=== PATIENT | male | born 1955 | race Caucasian/White ===

== ENCOUNTER 2020-12-24 16:00 | Inpatient (IN) ==
[2020-12-24] MEDS ORDERED: IOPAMIDOL 100 ML BOTTLE IV ONE (16:01)
[2020-12-24] MEDS ORDERED: 0.9 % SODIUM CHLORIDE 2,000 ML IV ONE (16:33)
[2020-12-24] MEDS ORDERED: ACETAMINOPHEN 325 MG TABLET PO ONE (16:38)
[2020-12-24] MEDS ORDERED: LEVOFLOXACIN 750 MG/150 ML BAG IV ONE (16:40)
--- NOTE | 2020-12-24 17:29 | XRay Report ---
HISTORY: Fever FINDINGS: Lungs are clear and well-expanded, without evidence of pneumonia. There is no adenopathy or pleural effusion. The heart size is borderline enlarged but magnified by portable technique. The heart is larger today than it was in 2018. Patient has a right shoulder prosthesis which is also new. IMPRESSION: Borderline cardiomegaly without congestive heart failure and no evidence of pneumonia Interpreted and Authenticated by: Vasiliy Burgess 12/24/20
[2020-12-24 17:45] LABS: Basophils # (Auto) 0.08 K/mcL (0.00-0.30); Basophils % (Auto) 0.3 % (0.0-2.0); Eosinophils # (Auto) 0.01 K/mcL (0.00-0.70); Eosinophils % (Auto) 0 % (0.0-7.0); Hematocrit 40.3 % (40.1-51.0); Hemoglobin 13.3 g/dL (13.7-17.5); Lymphocytes # (Auto) 0.87 K/mcL (1.50-4.80); Lymphocytes % (Auto) 3.8 % (15.5-49.0); Mean Cell Volume 89.8 fL (80.0-100.0); Mean Platelet Volume 11.1 fL (7.4-10.4); Monocytes % (Auto) 9.2 % (1.0-12.0); Neutrophils % (Auto) 86.7 % (38.0-78.0); Platelet Count 173 K/mcL (140-440); RBC 4.49 M/mcL (4.63-6.08); Red Cell Distribution Width 13.1 % (11.5-14.5); WBC 22.9 K/mcL (4.5-11.0)
[2020-12-24 17:54] LABS: Appearance,Urine HAZY (Clear); Bacteria,Urine FEW /hpf (0); Bilirubin,Urine Negative (Negative); Color,Urine YELLOW; Culture Indicated,Urine yes; Glucose,Urine (UA) >=500 mg/dL (Negative); Ketones,Urine 5 mg/dL (Negative); Leukocyte Esterase,Urine 75 /ug (Negative); Mucus,Urine FEW /hpf; Nitrate,Urine POS (Negative); Protein,Urine 30 mg/dL (Negative); Specific Gravity,Urine 1.018 (1.000-1.035); Urine Blood 0.03 mg/dL (Negative); Urine RBC 1 /hpf (0-3); Urine Squamous Epithelial Cell 0 /hpf (0-4); Urine WBC 32 /hpf (0-4); Urobilinogen,Urine Negative
[2020-12-24 18:01] LABS: ALT/SGPT 13 U/L (<40); AST/SGOT 16 U/L (<40); Albumin/Globulin Ratio 1.1 (1.0-2.3); Alkaline Phosphatase 87 U/L (39-117); Bilirubin,Total 1.6 mg/dL (0.1-1.0); Blood Urea Nitrogen 17 mg/dL (8-23); Calcium 9.4 mg/dL (8.6-10.4); Carbon Dioxide 22 mmol/L (22-30); Chloride 93 mmol/L (96-108); Globulin 3.6 gm/dL (2.2-3.7); Glomerular Filtration Rate 56; Glucose 265 mg/dL (70-105)
--- NOTE | 2020-12-24 18:06 | Emergency Department Note ---
Male Urogenital HPI General Chief complaint: Urogenital-Male Stated complaint: Prostitis Time Seen by Provider: 12/24/20 16:30 Source: patient Mode of arrival: ambulatory Limitations: no limitations History of Present Illness HPI Narrative: Narrative: Patient presents to the ED with approximately 1 day of fever, dysuria and developing rectal pain. He has a history of prostatitis which he says feels similar. Admits some associated nausea, no vomiting, no abdominal pain, no flank pain. Denies any URI symptoms or cough. No other complaints. Does have a history of diabetes. Related Data Home Medications Medication Instructions Recorded Confirmed allopurinol 100 mg tablet 100 mg PO QDAY 03/11/19 09/21/20 diltiazem HCl 180 mg 180 mg PO QDAY 03/11/19 09/21/20 capsule,extended release 24 hr, controlled glipizide 10 mg tablet 10 mg PO QDAY 03/11/19 09/21/20 hydrochlorothiazide 12.5 mg capsule 12.5 mg PO QDAY 03/11/19 09/21/20 hydrocodone 7.5 mg-acetaminophen 1 tab PO QHS PRN 03/11/19 09/21/20 325 mg tablet lisinopril 20 mg tablet 20 mg PO QDAY 03/11/19 09/21/20 metformin 500 mg tablet 500 mg PO BID 03/11/19 09/21/20 rosuvastatin 10 mg tablet 10 mg PO QDAY 03/11/19 09/21/20 sitagliptin 100 mg tablet 100 mg PO QDAY 03/11/19 09/21/20 tramadol 50 mg tablet 50 mg PO BID 03/11/19 09/21/20 Allergies Allergy/AdvReac Type Severity Reaction Status Date / Time penicillin G Allergy Severe ITCHING,SHORTNESS Verified 12/24/20 16:13 OF BREATH, SWELLING, RASH Cephalosporins Allergy Intermediate Rash Verified 12/24/20 16:13 Sulfa (Sulfonamide Allergy Intermediate SOB, Verified 12/24/20 16:13 Antibiotics) SWELLING [SULFA(SULFONAMIDE ALL OVER ANTIBIOTICS)] BODY, ITCHING Review of Systems ROS ROS Narrative: Narrative: At least 10 systems reviewed and otherwise acutely negative except as in the HPI PFSH Narrative Patient History Narrative: Narrative: Medical/Surgical/Family History All Active Problems (Updated 12/25/20 @ 03:33 by Sachin Mary DO) Sepsis (Acute) Acute prostatitis (Acute) History of right shoulder replacement (Acute) Shoulder pain (Acute) Morbid obesity (Chronic) Palsy, Carias's (Acute) Diabetes mellitus (Chronic) Hyperlipidemia (Chronic) Hypertension (Chronic) Medical History Diabetes mellitus History of atrial fibrillation S/P cardioversion Hyperlipidemia Hypertension Morbid obesity Prostatitis Shoulder pain Surgical History History of right shoulder replacement Social History Smoking Status: Former smoker Alcohol Intake Frequency: does not drink Substance Use: does not use Exam Narrative Narrative: Narrative: Constitutional: normally developed, no acute distress . Head: Normocephalic, atraumatic, Eyes: No Icterus, ENT: Moist mucus membranes, Neck: Supple, Cardiac: Normal heart sounds, palpable radial pulses, no peripheral edema Pulmonary: Normal respiratory effort. Breath sounds clear, no wheeze, rhonchi, rales, Gastrointestinal: Abdomen soft, non-distended, non-tender, no CVA tenderness Genitourinary: Grossly normal appearing penis and scrotum, testes nonswollen no erythema nontender, perineal region is normal appearing shows no rash or induration or erythema, nontender Musculoskeletal: No gross deformities, well perfused Skin: warm, dry Neuro: Alert and oriented. General Limitations: no limitations Course Vital Signs Vital signs: Vital Signs Temperature 38.8 C H 12/24/20 16:11 Pulse Rate 102 H 12/24/20 16:11 Respiratory Rate 20 12/24/20 16:11 Blood Pressure 129/72 12/24/20 16:11 Pulse Oximetry (%) 95 12/24/20 16:11 Temperature 37.7 C H 12/24/20 22:52 Pulse Rate 77 12/24/20 22:52 Respiratory Rate 20 12/24/20 22:52 Blood Pressure 107/57 12/24/20 22:52 Pulse Oximetry (%) 94 12/24/20 22:52 MDM MDM Narrative Medical decision making narrative: Narrative: Patient presents with infectious symptoms including dysuria rectal pain, differential includes UTI/pyelonephritis, prostatitis, intra-abdominal infection , such as colitis/diverticulitis, work-up was initiated by the previous physician including 2 L bolus,Levaquin and Tylenol. He was initially mildly tachycardic and febrile concerning for sepsis, however on exam he is very nontoxic appearing, repeat vitals after initial interventions are stable/normal tachycardia resolved blood pressure stable CBC does show leukocytosis of 22, electrolytes show a hyponatremia hypochloremia Creatinine 1.3 baseline around 1.2, he is also hyperglycemic to 265 with normal anion gap normal bicarb. Has received IV fluids. Lactic acid normal 1.5 Urinalysis infectious positive nitrites, leukocyte esterase WBCs bacteria CT shows markedly enlarged prostate with stranding of the fat posterior to the prostate, no abscess, causing some compression on the ureters. Reevaluation vitals are stable his tachycardia is resolved fever resolved is feeling better, presentation consistent with sepsis likely due to UTI/prostatitis. He has already received Levaquin. I have spoken with the hospitalist who accepts admission at this time Lab Data Result diagrams: 12/24/20 16:59 12/24/20 16:59 Labs: Lab Results 12/24/20 12/24/20 12/24/20 Range/Units 16:20 16:59 16:59 WBC 22.9 H (4.5-11.0) K/mcL RBC 4.49 L (4.63-6.08) M/mcL Hgb 13.3 L (13.7-17.5) g/dL Hct 40.3 (40.1-51.0) % MCV 89.8 (80.0-100.0) fL MCH 29.6 (26.0-34.0) pg MCHC 33.0 (31.0-36.0) g/dL RDW 13.1 (11.5-14.5) % Plt Count 173 (140-440) K/mcL MPV 11.1 H (7.4-10.4) fL Neut % (Auto) 86.7 H (38.0-78.0) % Lymph % (Auto) 3.8 L (15.5-49.0) % [place] % (Auto) 9.2 (1.0-12.0) % Eos % (Auto) 0 (0.0-7.0) % Baso % (Auto) 0.3 (0.0-2.0) % Lymph # (Auto) 0.87 L (1.50-4.80) K/mcL [place] # (Auto) 2.10 H (0.10-0.90) K/mcL Eos # (Auto) 0.01 (0.00-0.70) K/mcL Baso # (Auto) 0.08 (0.00-0.30) K/mcL Absolute Neutrophils 19.80 H (1.80-8.00) K/mcL VBG Lactic Acid (0.5-2.0) mmol/L Sodium 130 L (133-145) mmol/L Potassium 4.4 (3.3-5.1) mmol/L Chloride 93 L (96-108) mmol/L Carbon Dioxide 22 (22-30) mmol/L Anion Gap 15.0 (8.0-16.0) BUN 17 (8-23) mg/dL Creatinine 1.3 H (0.7-1.2) mg/dL GFR Calculation 56 Glucose 265 H (70-105) mg/dL Calcium 9.4 (8.6-10.4) mg/dL Total Bilirubin 1.6 H (0.1-1.0) mg/dL AST 16 (<40) U/L ALT 13 (<40) U/L Alkaline Phosphatase 87 (39-117) U/L Total Protein 7.6 (5.9-8.4) gm/dL Albumin 4.0 (3.2-5.2) gm/dL Globulin 3.6 (2.2-3.7) gm/dL Albumin/Globulin Ratio 1.1 (1.0-2.3) Urine Color Yellow Urine Appearance Hazy A (Clear) Urine pH 5.0 (5.0-9.0) Ur Specific [place] 1.018 (1.000-1.035) Urine Protein 30 A (Negative) mg/dL Urine Glucose (UA) >=500 A (Negative) mg/dL Urine Ketones 5 A (Negative) mg/dL Urine Occult Blood 0.03 (Negative) mg/dL Urine Nitrate Pos A (Negative) Urine Bilirubin Negative (Negative) mg/dL Urine Urobilinogen Negative mg/dL Ur Leukocyte Esterase 75 A (Negative) /ug Urine RBC 1 (0-3) /hpf Urine WBC 32 H (0-4) /hpf Ur Squamous Epith Cells 0 (0-4) /hpf Urine Bacteria Few A (0) /hpf Urine Mucus Few A (None) /hpf Ur Culture Indicated? yes 09/13/21 Range/Units 20:07 WBC (4.5-11.0) K/mcL RBC (4.63-6.08) M/mcL Hgb (13.7-17.5) g/dL Hct (40.1-51.0) % MCV (80.0-100.0) fL MCH (26.0-34.0) pg MCHC (31.0-36.0) g/dL RDW (11.5-14.5) % Plt Count (140-440) K/mcL MPV (7.4-10.4) fL Neut % (Auto) (38.0-78.0) % Lymph % (Auto) (15.5-49.0) % [place] % (Auto) (1.0-12.0) % Eos % (Auto) (0.0-7.0) % Baso % (Auto) (0.0-2.0) % Lymph # (Auto) (1.50-4.80) K/mcL [place] # (Auto) (0.10-0.90) K/mcL Eos # (Auto) (0.00-0.70) K/mcL Baso # (Auto) (0.00-0.30) K/mcL Absolute Neutrophils (1.80-8.00) K/mcL VBG Lactic Acid 1.5 (0.5-2.0) mmol/L Sodium (133-145) mmol/L Potassium (3.3-5.1) mmol/L Chloride (96-108) mmol/L Carbon Dioxide (22-30) mmol/L Anion Gap (8.0-16.0) BUN (8-23) mg/dL Creatinine (0.7-1.2) mg/dL GFR Calculation Glucose (70-105) mg/dL Calcium (8.6-10.4) mg/dL Total Bilirubin (0.1-1.0) mg/dL AST (<40) U/L ALT (<40) U/L Alkaline Phosphatase (39-117) U/L Total Protein (5.9-8.4) gm/dL Albumin (3.2-5.2) gm/dL Globulin (2.2-3.7) gm/dL Albumin/Globulin Ratio (1.0-2.3) Urine Color Urine Appearance (Clear) Urine pH (5.0-9.0) Ur Specific [place] (1.000-1.035) Urine Protein (Negative) mg/dL Urine Glucose (UA) (Negative) mg/dL Urine Ketones (Negative) mg/dL Urine Occult Blood (Negative) mg/dL Urine Nitrate (Negative) Urine Bilirubin (Negative) mg/dL Urine Urobilinogen mg/dL Ur Leukocyte Esterase (Negative) /ug Urine RBC (0-3) /hpf Urine WBC (0-4) /hpf Ur Squamous Epith Cells (0-4) /hpf Urine Bacteria (0) /hpf Urine Mucus (None) /hpf Ur Culture Indicated? ED POC Tests ED POC Tests: MIGUEL - SARS Antigen Negative Discharge Plan Patient/Caregiver Discharge Instructions Pt seen by [employer] TE[employer] INSPECTOR/PA only: No Clinical Impression: Acute prostatitis Sepsis Qualifiers: Sepsis type: sepsis due to unspecified organism Sepsis acute organ dysfunction status: without acute organ dysfunction Qualified Code(s): A41.9 - Sepsis, unspecified organism Patient Disposition: Xfer As Inpt ([facility]) Condition: Fair Discharge Date/Time: 12/24/20 22:35 Discharge Location: [facility] Inpatient Discharge Comment: [id number]
--- NOTE | 2020-12-24 19:09 | Cat Scan Report ---
History: Prostatitis, dysuria, rectal pain, septic TECHNIQUE: The patient was imaged following injection of intravenous nonionic contrast scanning during the portal venous phase from the diaphragm to the symphysis pubis. Sagittal and coronal reformats were created. Radiation exposure was limited using dose reduction technology. FINDINGS: There is mild generalized fatty infiltration of liver. The liver is normal in size there is no focal mass. The gallbladder is been removed. The bile ducts are nondilated. Spleen is normal in size and homogeneous. The pancreas is normal without evidence for mass or inflammation. There is a nodule in the left adrenal gland which measures 1.3 x 1.3 cm. This is unchanged from the prior CT done on 01/06/20. This is probably an incidental adenoma. The right adrenal is normal. There are focal segments of both ureters which are dilated. There is also mild fullness of the left renal pelvis but there is no caliectasis. The right renal pelvis and infundibula and calyces are normal. There is no kidney stone or ureteral stone. No mass or cyst are present in either kidney. The prostate is moderate to severely enlarged but relatively homogeneous. It measures 7.1 x 7.7 cm in transverse dimension. It measures 6.1 x 7.0 cm in transverse dimension on 01/06/20. No abscess is seen. There is some stranding of the fat posterior to the prostate. Prostate is lifting the bladder from the floor of the pelvis. The wall of the bladder is not abnormally thickened or inflamed. There are no stones or mass within the lumen of the bladder. The seminal vesicles are normal in size and symmetric. No abscess, free fluid or adenopathy are present in the abdomen or pelvis. Aorta is normal in caliber and there are few scattered calcified plaques in the aorta and iliac arteries. Bowel pattern is normal, except for a couple noninflamed diverticula in the sigmoid colon. No abnormality is seen in the sigmoid or rectum. Advanced degenerative disc disease and arthritis are present from L2-3 through L5-S1. IMPRESSION: Markedly enlarged prostate resulting in partial obstruction of both distal ureters at the ureterovesical junctions. There is no evidence of prostate abscess Dr. Loja was called with the report Interpreted and Authenticated by: Vasiliy Burgess 12/24/20
--- NOTE | 2020-12-24 21:47 | Internal Med History&Physical ---
HPI History of Present Illness Patient information: Note initiated : 12/24/20 at 9:43 pm Service Date, if different from initiated Date: [] Patient: Dada Burns 65 y/o M admitted on for Prostatitis. Chief Complaint: [] History of present illness: Mr. Burns is a 65 year old male with a history of type 2 diabetes mellitus, gout, prostatitis presented for groin pain reminiscent of prior prostatitis. UA was positive for UTI and CT scan was also suggestive of prostatitis but no abscess identified. Review of systems Constitutional: no fever, fatigue, or weight loss Eyes: no vision changes or pain Cardiovascular: no chest pain, no palpitations Respiratory: no cough or dyspnea Gastrointestinal: no abdominal pain, no nausea, vomiting, or diarrhea Genitourinary: no dysuria or difficulty voiding Musculoskeletal: no arthralgia or myalgia Integumentary: no skin lesion or wound Neurological: no focal weakness or numbness Psychiatric: no anxiety or depression Physical exam Head: Atraumatic, normal inspection. Eyes: normal appearance, no scleral icterus. Neck: full ROM Respiratory: no respiratory distress. Cardiovascular: normal rate and rhythm, S1, S2. GI/Abdominal: soft, nontender, no guarding. Extremities: full range of motion, nontender. Neurological: CN II-XII intact, intact motor, intact sensation. Psychiatric: normal mood. Skin: warm, normal color PFSH PFSH All Active Problems (Updated 12/25/20 @ 03:33 by Sachin Mary DO) Sepsis (Acute) Acute prostatitis (Acute) History of right shoulder replacement (Acute) Shoulder pain (Acute) Morbid obesity (Chronic) Palsy, Carias's (Acute) Diabetes mellitus (Chronic) Hyperlipidemia (Chronic) Hypertension (Chronic) Medical History Diabetes mellitus History of atrial fibrillation S/P cardioversion Hyperlipidemia Hypertension Morbid obesity Prostatitis Shoulder pain Surgical History History of right shoulder replacement Social History alcohol intake frequency: does not drink substance use type: does not use MEDS/ALLERGIES Home Medications and Allergies Home Medications Medication Instructions Recorded Confirmed Type allopurinol 100 mg tablet 100 mg PO QDAY 03/11/19 12/25/20 History diltiazem HCl 180 mg 180 mg PO QDAY 03/11/19 12/25/20 History capsule,extended release 24 hr, controlled glipizide 10 mg tablet 10 mg PO QDAY 03/11/19 12/25/20 History hydrochlorothiazide 12.5 mg capsule 12.5 mg PO QDAY 03/11/19 12/25/20 History hydrocodone 7.5 mg-acetaminophen 1 tab PO TID 03/11/19 12/25/20 History 325 mg tablet lisinopril 20 mg tablet 20 mg PO QDAY 03/11/19 12/25/20 History metformin 500 mg tablet 500 mg PO BID 03/11/19 12/25/20 History rosuvastatin 10 mg tablet 10 mg PO HS 03/11/19 12/25/20 History sitagliptin 100 mg tablet 100 mg PO HS 03/11/19 12/25/20 History tramadol 50 mg tablet 50 mg PO BID 03/11/19 12/25/20 History Allergies Allergy/AdvReac Type Severity Reaction Status Date / Time penicillin G Allergy Severe ITCHING,SHORTNESS Verified 12/24/20 16:13 OF BREATH, SWELLING, RASH Cephalosporins Allergy Intermediate Rash Verified 12/24/20 16:13 Sulfa (Sulfonamide Allergy Intermediate SOB, Verified 12/24/20 16:13 Antibiotics) SWELLING [SULFA(SULFONAMIDE ALL OVER ANTIBIOTICS)] BODY, ITCHING EXAM Constitutional Vitals: Temp Pulse Resp BP Pulse Ox 101.9 F H 75 20 110/58 100 12/24/20 16:11 12/24/20 21:11 12/24/20 16:11 12/24/20 21:02 12/24/20 21:11 DATA Data Completed and Pending Labs: Labs from last 24 hours 12/24/20 12/24/20 12/24/20 20:07 16:59 16:59 WBC 22.9 H RBC 4.49 L Hgb 13.3 L Hct 40.3 MCV 89.8 MCH 29.6 MCHC 33.0 RDW 13.1 Plt Count 173 MPV 11.1 H Neut % (Auto) 86.7 H Lymph % (Auto) 3.8 L [place] % (Auto) 9.2 Eos % (Auto) 0 Baso % (Auto) 0.3 Lymph # (Auto) 0.87 L [place] # (Auto) 2.10 H Eos # (Auto) 0.01 Baso # (Auto) 0.08 Absolute Neutrophils 19.80 H VBG Lactic Acid 1.5 Sodium 130 L Potassium 4.4 Chloride 93 L Carbon Dioxide 22 Anion Gap 15.0 BUN 17 Creatinine 1.3 H GFR Calculation 56 Glucose 265 H Calcium 9.4 Total Bilirubin 1.6 H AST 16 ALT 13 Alkaline Phosphatase 87 Total Protein 7.6 Albumin 4.0 Globulin 3.6 Albumin/Globulin Ratio 1.1 Urine Color Urine Appearance Urine pH Ur Specific [place] Urine Protein Urine Glucose (UA) Urine Ketones Urine Occult Blood Urine Nitrate Urine Bilirubin Urine Urobilinogen Ur Leukocyte Esterase Urine RBC Urine WBC Ur Squamous Epith Cells Urine Bacteria Urine Mucus Ur Culture Indicated? 12/24/20 16:20 WBC RBC Hgb Hct MCV MCH MCHC RDW Plt Count MPV Neut % (Auto) Lymph % (Auto) [place] % (Auto) Eos % (Auto) Baso % (Auto) Lymph # (Auto) [place] # (Auto) Eos # (Auto) Baso # (Auto) Absolute Neutrophils VBG Lactic Acid Sodium Potassium Chloride Carbon Dioxide Anion Gap BUN Creatinine GFR Calculation Glucose Calcium Total Bilirubin AST ALT Alkaline Phosphatase Total Protein Albumin Globulin Albumin/Globulin Ratio Urine Color Yellow Urine Appearance Hazy A Urine pH 5.0 Ur Specific [place] 1.018 Urine Protein 30 A Urine Glucose (UA) >=500 A Urine Ketones 5 A Urine Occult Blood 0.03 Urine Nitrate Pos A Urine Bilirubin Negative Urine Urobilinogen Negative Ur Leukocyte Esterase 75 A Urine RBC 1 Urine WBC 32 H Ur Squamous Epith Cells 0 Urine Bacteria Few A Urine Mucus Few A Ur Culture Indicated? yes A/P Narrative A/P Narrative: Assessment: 65 year old male admitted for acute prostatitis. #Acute prostatitis #Type 2 diabetes mellitus #Hypertension #Obesity Plan -Ciprofloxacin IV BID. -Follow urine and blood cx -IV fluid -SSI, hold home oral DM meds for now. -Home medication reconciliation. -DVT ppx: Lovenox -Code status: [employer] Spent With Patient Time: Total time spent is greater than 50% in coordination of care (as documented) at patient's floor/unit and/or counseling patient:
[2020-12-24] MEDS ORDERED: ONDANSETRON 4 MG/2 ML VIAL IV PRN (22:49)
[2020-12-24] MEDS ORDERED: DEXTROSE 31 GM ORAL.SUSP PO PRN (22:49)
[2020-12-24] MEDS ORDERED: 0.9 % SODIUM CHLORIDE 1,000 ML IV SCH (22:49)
[2020-12-24] MEDS ORDERED: HYDROmorphone 0.5 MG/0.5 ML SYRINGE IV PRN (22:49)
[2020-12-24] MEDS ORDERED: oxyCODONE/APAP 5/325MG TABLET PO PRN (22:49)
[2020-12-24] MEDS ORDERED: DEXTROSE 50% 50 ML VIAL IV PRN (22:49)
[2020-12-24] MEDS: CIPROFLOXACIN 400 MG/200 ML BAG IV SCH (23:22)
[2020-12-24] MEDS ORDERED: CIPROFLOXACIN 400 MG/200 ML BAG IV ONE (23:22)
[2020-12-24] MEDS: 0.9 % SODIUM CHLORIDE 10 ML SYRINGE IV SCH (23:22)
[2020-12-25] MEDS ORDERED: ONDANSETRON 4 MG/2 ML VIAL ONE (01:07)
[2020-12-25] MEDS ORDERED: HYDROmorphone 0.5 MG/0.5 ML SYRINGE ONE (04:56)
[2020-12-25] MEDS: 0.9 % SODIUM CHLORIDE 10 ML SYRINGE IV SCH ×3 (06:51→22:24)
[2020-12-25] MEDS ORDERED: INSULIN LISPRO 1 UNIT/0.01 ML UNIT SQ SCH ×2 (07:30→08:23)
[2020-12-25 07:52] LABS: Hematocrit 36.7 % (40.1-51.0); Hemoglobin 12.6 g/dL (13.7-17.5); Mean Cell Volume 88.4 fL (80.0-100.0); Mean Corpuscular HGB Conc 34.3 g/dL (31.0-36.0); Mean Platelet Volume 11.2 fL (7.4-10.4); Platelet Count 155 K/mcL (140-440); RBC 4.15 M/mcL (4.63-6.08); Red Cell Distribution Width 13.1 % (11.5-14.5); WBC 19.4 K/mcL (4.5-11.0)
[2020-12-25 08:15] LABS: ALT/SGPT 10 U/L (<40); AST/SGOT 10 U/L (<40); Albumin 3.6 gm/dL (3.2-5.2); Albumin/Globulin Ratio 1.2 (1.0-2.3); Alkaline Phosphatase 76 U/L (39-117); Bilirubin,Direct 0.4 mg/dL (<0.3); Bilirubin,Total 1.2 mg/dL (0.1-1.0); Blood Urea Nitrogen 15 mg/dL (8-23); Calcium 8.8 mg/dL (8.6-10.4); Carbon Dioxide 24 mmol/L (22-30); Chloride 100 mmol/L (96-108); Glomerular Filtration Rate 62; Glucose 229 mg/dL (70-105); Lactate Dehydrogenase 145 U/L (135-225); Phosphorous 1.5 mg/dL (2.5-4.5); Triglycerides 80 mg/dL (<150); Uric Acid 4.6 mg/dL (2.5-8.0)
[2020-12-25] MEDS ORDERED: MAGNESIUM SULFATE 2 GM/50 ML BAG IV ONE (08:21)
[2020-12-25] MEDS ORDERED: INSULIN GLARGINE, HUMAN 1 UNIT/0.01 ML SQ SCH (09:00)
[2020-12-25] MEDS: DOCUSATE SODIUM 100 MG CAPSULE PO SCH ×2 (09:28→21:45)
[2020-12-25] MEDS: CIPROFLOXACIN 400 MG/200 ML BAG IV SCH ×2 (09:28→22:18)
[2020-12-25] MEDS: NEUTRA PHOS 1 PACKET PO SCH ×2 (09:29→21:44)
[2020-12-25 10:03] LABS: Estimated Average Glucose(eAG) 203 mg/dL; Hemoglobin A1C 8.7 % Hgb (4.0-6.0)
[2020-12-25] MEDS: ENOXAPARIN 40 MG/0.4 ML SYRINGE SQ SCH (10:46)
[2020-12-25 11:16] LABS: Basophils % (Manual) 1 % (0-2); Lymphocytes % 8 % (15-49); Monocytes % (Manual) 6 % (1-12); Platelet Estimate NORMAL (Normal); RBC Morphology NORMAL (Normal); Segmented Neutrophils % 85 % (38-78)
[2020-12-25] MEDS: ACETAMINOPHEN 325 MG TABLET PO PRN ×2 (14:31→23:16)
[2020-12-25] MEDS: INSULIN LISPRO 1 UNIT/0.01 ML UNIT SQ SCH ×2 (17:20→22:23)
[2020-12-25] MEDS ORDERED: SENNOSIDES 1 TABLET PO SCH (21:00)
[2020-12-26] MEDS: HYDROCODONE/APAP 7.5/325MG TABLET PO SCH ×2 (01:40→09:04)
[2020-12-26] MEDS ORDERED: HYDROCODONE/APAP 7.5/325MG TABLET PO ONE (01:43)
[2020-12-26] MEDS: INSULIN LISPRO 1 UNIT/0.01 ML UNIT SQ SCH (07:30)
[2020-12-26 08:53] LABS: Hematocrit 36.2 % (40.1-51.0); Hemoglobin 12.3 g/dL (13.7-17.5); Mean Cell Volume 88.9 fL (80.0-100.0); Mean Platelet Volume 11.4 fL (7.4-10.4); Platelet Count 155 K/mcL (140-440); RBC 4.07 M/mcL (4.63-6.08); WBC 12.3 K/mcL (4.5-11.0)
[2020-12-26] MEDS ORDERED: INSULIN GLARGINE, HUMAN 1 UNIT/0.01 ML SQ SCH (09:00)
[2020-12-26] MEDS: CIPROFLOXACIN 400 MG/200 ML BAG IV SCH (09:00)
[2020-12-26] MEDS: NEUTRA PHOS 1 PACKET PO SCH (09:02)
[2020-12-26] MEDS: DOCUSATE SODIUM 100 MG CAPSULE PO SCH (09:02)
[2020-12-26] MEDS: 0.9 % SODIUM CHLORIDE 10 ML SYRINGE IV SCH (09:03)
[2020-12-26] MEDS: ENOXAPARIN 40 MG/0.4 ML SYRINGE SQ SCH (09:03)
[2020-12-26 09:13] LABS: ALT/SGPT 10 U/L (<40); AST/SGOT 16 U/L (<40); Albumin 3.4 gm/dL (3.2-5.2); Alkaline Phosphatase 93 U/L (39-117); Bilirubin,Direct 0.2 mg/dL (<0.3); Bilirubin,Total 0.8 mg/dL (0.1-1.0); Blood Urea Nitrogen 16 mg/dL (8-23); Calcium 9.4 mg/dL (8.6-10.4); Carbon Dioxide 25 mmol/L (22-30); Chloride 100 mmol/L (96-108); Globulin 3.5 gm/dL (2.2-3.7); Glomerular Filtration Rate 56; Glucose 182 mg/dL (70-105); Lactate Dehydrogenase 213 U/L (135-225); Phosphorous 2.1 mg/dL (2.5-4.5); Triglycerides 121 mg/dL (<150)
--- NOTE | 2020-12-26 09:17 | Discharge Summary ---
Discharge Provider Provider Patient information: Note initiated : 12/26/20 at 9:12 am Service Date, if different from initiated Date: [] Patient: Dada Burns 65 y/o M admitted on 12/24/20 for Prostatitis. Chief Complaint: [] Date of admission: 12/24/20 22:35 Discharge date: 12/26/20 Primary care physician: Francesco Wylie Consults: 12/24/20 Consult to Physician [CONS] Stat Comment: Consulting Provider: Amadeo Uriostegui Reason For Exam: Physician to Consult Discharge Meds Discharge Medications Home Medications allopurinol 100 mg tablet 100 mg PO QDAY 03/11/19 [History Confirmed 12/25/20 Last Taken 12/23/20 09:00] diltiazem HCl 180 mg capsule,extended release 24 hr, controlled 180 mg PO QDAY 03/11/19 [History Confirmed 12/25/20 Last Taken 12/23/20 09:00] glipizide 10 mg tablet 10 mg PO QDAY 03/11/19 [History Confirmed 12/25/20 Last Taken 12/23/20 09:00] hydrochlorothiazide 12.5 mg capsule 12.5 mg PO QDAY 03/11/19 [History Confirmed 12/25/20 Last Taken 12/23/20 09:00] hydrocodone 7.5 mg-acetaminophen 325 mg tablet 1 tab PO TID 03/11/19 [History Confirmed 12/25/20 Last Taken 12/23/20 21:00] lisinopril 20 mg tablet 20 mg PO QDAY 03/11/19 [History Confirmed 12/25/20 Last Taken 12/23/20 09:00] metformin 500 mg tablet 500 mg PO BID 03/11/19 [History Confirmed 12/25/20 Last Taken 12/23/20 17:00] rosuvastatin 10 mg tablet 10 mg PO HS 03/11/19 [History Confirmed 12/25/20 Last Taken 12/23/20 21:00] sitagliptin 100 mg tablet 100 mg PO HS 03/11/19 [History Confirmed 12/25/20 Last Taken 12/23/20 21:00] tramadol 50 mg tablet 50 mg PO BID 03/11/19 [History Confirmed 12/25/20 Last Taken 12/23/20 21:00] ciprofloxacin HCl 500 mg PO BID 26 Days #52 tab 12/26/20 [Rx Last Taken Unknown] COURSE Hospital Course Hospital course: Mr. Burns is a 65 year old male with a history of type 2 diabetes mellitus, gout, prostatitis presented for groin pain reminiscent of prior prostatitis. UA was positive for UTI and CT scan was also suggestive of prostatitis but no abscess identified. 12/26: The patient feels much better and wants to go home. Urine culture growing gram negative bacillus, blood culture no growth to date. Discharged to home on Ciprofloxacin 500 mg PO BID to complete 4 weeks of treatment. Follow up with PCP, will defer decision on urology referral to PCP given the 4 week treatment course for acute prostatitis. Physical exam Head: Atraumatic, normal inspection. Eyes: normal appearance, no scleral icterus. Neck: full ROM Respiratory: no respiratory distress. Cardiovascular: normal rate and rhythm, S1, S2. GI/Abdominal: soft, nontender, no guarding. Extremities: full range of motion, nontender. Neurological: CN II-XII intact, intact motor, intact sensation. Psychiatric: normal mood. Skin: warm, normal color Discharge diagnosis: Acute prostatitis Time Spent with Patient Time attestation: Total time spent providing and/or coordinating discharge services: EXAM Constitutional Vitals: Temp Pulse Resp BP Pulse Ox 98.2 F 71 18 139/71 95 12/26/20 08:00 12/26/20 08:00 12/26/20 08:00 12/26/20 08:00 12/26/20 08:00 Discharge Data Data Completed and Pending Labs on day of discharge: Labs from last 24 hours 12/26/20 12/26/20 12/25/20 05:39 05:39 04:48 WBC 12.3 H RBC 4.07 L Hgb 12.3 L Hct 36.2 L MCV 88.9 MCH 30.2 MCHC 34.0 RDW 13.0 Plt Count 155 MPV 11.4 H Seg Neutrophils % 85 H Lymphocytes % 8 L Monocytes % (Manual) 6 Basophils % (Manual) 1 Platelet Estimate Pending Normal RBC Morphology Pending Normal Sodium Pending Potassium Pending Chloride Pending Carbon Dioxide Pending Anion Gap Pending BUN Pending Creatinine Pending GFR Calculation Pending Glucose Pending Hemoglobin A1c Estim Average Glucose Uric Acid Pending Calcium Pending Phosphorus Pending Magnesium Pending Total Bilirubin Pending Direct Bilirubin Pending GGT Pending AST Pending ALT Pending Alkaline Phosphatase Pending Lactate Dehydrogenase Pending Total Protein Pending Albumin Pending Globulin Pending Albumin/Globulin Ratio Pending Triglycerides Pending 12/25/20 04:47 WBC RBC Hgb Hct MCV MCH MCHC RDW Plt Count MPV Seg Neutrophils % Lymphocytes % Monocytes % (Manual) Basophils % (Manual) Platelet Estimate RBC Morphology Sodium Potassium Chloride Carbon Dioxide Anion Gap BUN Creatinine GFR Calculation Glucose Hemoglobin A1c 8.7 H Estim Average Glucose 203 Uric Acid Calcium Phosphorus Magnesium Total Bilirubin Direct Bilirubin GGT AST ALT Alkaline Phosphatase Lactate Dehydrogenase Total Protein Albumin Globulin Albumin/Globulin Ratio Triglycerides Preliminary micro results at discharge 12/24/20 16:59 Blood Culture - Preliminary Blood 12/24/20 16:51 Blood Culture - Preliminary Blood 12/24/20 16:20 Urine Culture - Preliminary Urine - Clean Void Mid-Stream Gram negative bacillus Discharge Plan Patient/Caregiver Discharge Instructions Activity: increase activity as tolerated Diet: Consistent Carbohydrate Prescriptions: New ciprofloxacin HCl 500 mg tablet 500 mg PO BID 26 Days Qty: 52 RF: 0 Continued metformin 500 mg tablet 500 mg PO BID RF: 0 tramadol 50 mg tablet 50 mg PO BID RF: 0 Januvia 100 mg tablet 100 mg PO HS RF: 0 lisinopril 20 mg tablet 20 mg PO QDAY RF: 0 glipizide 10 mg tablet 10 mg PO QDAY RF: 0 hydrochlorothiazide 12.5 mg capsule 12.5 mg PO QDAY RF: 0 rosuvastatin 10 mg tablet 10 mg PO HS RF: 0 allopurinol 100 mg tablet 100 mg PO QDAY RF: 0 diltiazem HCl 180 mg capsule,ext.rel 24h degradable 180 mg PO QDAY RF: 0 hydrocodone-acetaminophen 7.5-325 mg tablet 1 tab PO TID RF: 0 Follow Up Plan Follow up with: Glen Wylie MD [Primary Care Provider] - Patient Disposition: Home, Self-Care Prognosis: Fair Overall status at discharge: patient is progressing back to baseline Discharge Orders: Discharge Order (Routine); Ordered 12/26/20 Ordered By: Amadeo COLON VTE Deep Vein Thrombosis/Pulmonary Embolism Present on Admission: No
[2020-12-26 09:38] LABS: Band Neutrophils % 1 % (0-10); Eosinophils % (Manual) 1 % (0-7); Lymphocytes % 10 % (15-49); Monocytes % (Manual) 4 % (1-12); Platelet Estimate NORMAL (Normal); RBC Morphology NORMAL (Normal); Reactive Lymphocytes 1 % (0-2); Segmented Neutrophils % 83 % (38-78)
== END 2020-12-26 11:07 | disposition home or self-care (01) | DRG 728 ==
LOC: ED 16:00 → ICU 22:35
PROVIDERS: ADMIT Internal Medicine; ATTEND Internal Medicine